=== PATIENT | male | born 1960 ===

== ENCOUNTER 2024-09-23 10:21 | Emergency (ER) | payer OTHER ==
[~2024-09-23] VITALS: Ht 172.7 cm; Wt 72.6 kg
[2024-09-23] MEDS ORDERED: Acetaminophen/Oxycodone 5 MG/325 MG TABLET PO ONE (10:35)
[2024-09-23] MEDS ORDERED: LEVOTHYROXINE50 MCG PO (10:49)
[2024-09-23] MEDS ORDERED: HYDROCHLOROTHIA25 M1 PO (10:49)
[2024-09-23] MEDS ORDERED: NATURE'S BLEND F1 MG PO (10:49)
[2024-09-23] MEDS ORDERED: PANTOPRAZOLE SO40 MG PO (10:50)
[2024-09-23] MEDS ORDERED: ROSUVASTATIN CA10 MG PO (10:50)
[2024-09-23] MEDS ORDERED: MELOXICAM15 MG PO (11:31)
== END 2024-09-23 11:30 | disposition home or self-care (01) ==
LOC: ED 10:21
DX: S63.502A Unspecified sprain of left wrist, initial encounter (principal); S43.402A Unspecified sprain of left shoulder joint, initial encounter; W19.XXXA Unspecified fall, initial encounter; Y93.89 Activity, other specified; Y92.89 Other specified places as the place of occurrence of the external cause; Y99.8 Other external cause status